=== PATIENT | male | born 1990 | race Caucasian/White ===

== ENCOUNTER 2018-07-13 10:36 | Emergency (ER) | payer SELFPAY ==
[2018-07-13] MEDS ORDERED: Lidocaine 1% (PF) 30 ML VIAL ONE (10:47)
[2018-07-13] MEDS ORDERED: HYDROcodone/Acetaminophen 5/325 mg Tablet ONE (10:49)
[2018-07-13] MEDS ORDERED: Adacel (T-DAP) 0.5 ML VIAL ONE (11:21)
--- NOTE | 2018-07-13 12:42 | RAD ---
THIRD DIGIT LEFT HAND THREE VIEWS: INDICATIONS: Pain. Injury. FINDINGS: There is partial amputation at the distal aspect of the third digit soft tissues, with an associated underlying, mildly comminuted, avulsive tuft fracture. IMPRESSION: Partial amputation of the distal third digit of the left hand, which does involve the distal phalange al tuft, which is partially absent and mildly comminuted at its residua. POS: [facility]
== END 2018-07-13 11:55 | disposition home or self-care (01) ==
LOC: NAV ERS 10:36
DX: S68.113A Complete traumatic metacarpophalangeal amputation of left middle finger, initial encounter (principal); F17.210 Nicotine dependence, cigarettes, uncomplicated; W23.1XXA Caught, crushed, jammed, or pinched between stationary objects, initial encounter
CPT/HCPCS: 90471; 90715; J2001